=== PATIENT | female | born 1960 | race Two or more races ===

== ENCOUNTER 2016-07-20 10:31 | Emergency (ER) | payer OTHER ==
[~2016-07-20] VITALS: Ht 170.2 cm; Wt 70.3 kg
[2016-07-20 11:26] LABS: BASOPHIL % 0.3 % (0-2); PLATELET COUNT 297 x10^3mcL (130-400); RED CELL DISTRIBUTION WIDTH 12.8 % (11.5-14.5)
[2016-07-20 11:30] LABS: CALCIUM 10.1 mg/dL (8.5-10.1); CARBON DIOXIDE 28.4 mmol/L (21-32); CHLORIDE SERUM 105 mmol/L (98-107); CREATININE SERUM 0.8 mg/dL (0.6-1.0); GFR1 > 60 mL/min; GLUCOSE SERUM 125 mg/dL (74-106); POTASSIUM SERUM 3.8 mmol/L (3.5-5.1); SODIUM SERUM 139 mmol/L (136-145)
[2016-07-20 11:36] LABS: ALBUMIN 4.5 g/dL (3.4-5.0); ALKALINE PHOSPHATASE 70 U/L (46-116); ALT/SGPT 17 U/L (14-59); AST/SGOT 17 U/L (15-37); BILIRUBIN TOTAL 0.9 mg/dL (0.20-1.00); TOTAL PROTEIN, SERUM 7.5 g/dL (6.4-8.2)
[2016-07-20 11:39] LABS: CHOLESTEROL 240 mg/dL (<200)
[2016-07-20 11:56] VITALS: BP 131/98
[2016-07-20] MEDS ORDERED: ARIPIPRAZOLE (11:59)
[2016-07-20] MEDS ORDERED: LATUDA (12:00)
[2016-07-20] MEDS ORDERED: LORAZEPAM1 MG (12:01)
[2016-07-20] MEDS ORDERED: LITHIUM CARBON300 MG (12:02)
[2016-07-20] MEDS ORDERED: ESTRACE0.5 MG PO (12:02)
[2016-07-20] MEDS ORDERED: TOPAMAX25 MG (12:04)
[2016-07-20] MEDS ORDERED: GOOD SENSE OMEP20 MG PO (12:05)
[2016-07-20] MEDS ORDERED: RISPERIDONE1 MG PO (12:06)
[2016-07-20] MEDS ORDERED: RESTORIL15 MG PO (12:06)
[2016-07-20] MEDS ORDERED: TROSPIUM CHLORI20 MG PO (12:06)
[2016-07-20] MEDS ORDERED: RANITIDINE HCL300 M2 PO (12:08)
[2016-07-20] MEDS ORDERED: MELOXICAM15 M1 PO (12:09)
[2016-07-20] MEDS ORDERED: CLONAZEPAM1 MG PO (12:10)
[2016-07-20] MEDS ORDERED: HYDROXYZINE10 M1 PO (12:11)
[2016-07-20] MEDS ORDERED: APAP/HYDROCODON1 T15 PO (12:12)
[2016-07-20] MEDS ORDERED: AMBIEN5 MG PO (12:13)
[2016-07-20] MEDS ORDERED: GABAPENTIN100 M2 (12:14)
[2016-07-20] MEDS ORDERED: TESSALON PERLE100 MG PO (12:15)
[2016-07-20] MEDS ORDERED: DIAZEPAM5 MG PO (12:15)
[2016-07-20] MEDS ORDERED: TRAMADOL HCL50 MG (12:17)
[2016-07-20] MEDS ORDERED: CYCLOBENZAPRINE10 MG PO (12:17)
[2016-07-20] MEDS ORDERED: [UNRECOGNIZED DRUG - OTHER] (12:18)
[2016-07-20 13:00] VITALS: BP 113/69
[2016-07-20 13:13] LABS: AMPHETAMINE QUAL UR NONE DETECTED (NEG <=1000)
[2016-07-20 14:50] VITALS: BP 117/70
[2016-07-20 16:37] VITALS: BP 118/68
== END 2016-07-20 16:50 | disposition short-term general hospital (02) ==
LOC: ED 10:31
PROVIDERS: Emergency Medicine
DX: T42.4X4A Poisoning by benzodiazepines, undetermined, initial encounter (principal); J96.00 Acute respiratory failure, unspecified whether with hypoxia or hypercapnia; F20.9 Schizophrenia, unspecified; F32.1 Major depressive disorder, single episode, moderate; F41.9 Anxiety disorder, unspecified; Y92.89 Other specified places as the place of occurrence of the external cause
CPT/HCPCS: 36600; 83880; A4628; G0480; J0330; J2704; J7030; Q0092